=== PATIENT | female | born 1965 | race Caucasian/White ===

== ENCOUNTER 2018-06-10 18:51 | Emergency (ER) | payer OTHER, SELFPAY ==
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
== END 2018-06-10 19:58 | disposition home or self-care (01) ==
LOC: BURERS 18:51
DX: S63.601A Unspecified sprain of right thumb, initial encounter (principal); X50.9XXA Other and unspecified overexertion or strenuous movements or postures, initial encounter

== ENCOUNTER 2022-06-28 01:30 | Emergency (ER) | payer SELFPAY ==
[2022-06-28] MEDS ORDERED: HYDROcodone/Acetaminophen 5/325 mg Tablet ONE (02:00)
[2022-06-28] MEDS ORDERED: Ketorolac Tromethamine 60 MG/2 ML VIAL ONE (02:07)
[2022-06-28] MEDS ORDERED: Ondansetron ODT 4 MG TAB ONE (03:42)
== END 2022-06-28 03:45 | disposition home or self-care (01) ==
LOC: BURERS 01:30
DX: U07.1 COVID-19 (principal)
CPT/HCPCS: 71045; 87081; 87430; 87804; 93005; 96372; J1885; Q0162